=== PATIENT | male | born 1990 | race Caucasian/White ===

== ENCOUNTER 2017-12-24 08:56 | Inpatient (IN) | payer SELFPAY ==
[2017-12-24 11:16] VITALS: BMI 19.1
--- NOTE | 2017-12-24 14:14 | HP ---
Admission [facility] Chief Complaint: Here for alcohol and opiate withdrawal. Allergies/Adverse Reactions: Allergies Allergy/AdvReac Type Severity Reaction Status Date / Time No Known Allergies Allergy Verified 12/24/17 11:17 History of Present Illness: Alcohol Cocaine Marijuana Percocet-- weaned self off percocet 1 month ago Nicotine use at age 18. Denies hx seizures. Hx blackouts r/t alcohol use. Hx. sobriety x 30 days w/o a program Denies significant PMH/PSH - Negative CONTRACT PARALEGAL report. Exam Limitations: No Limitations - Ebola screening Have you traveled outside of the country in the last 21 days: No (N) Have you had contact with anyone from an Ebola affected area: No Have you been sick,other than usual withdrawal symptoms: No Do you have a fever: No - Review of Systems Constitutional: Chills, Diaphoresis, Changes in sleep (Difficulty falling asleep ) EENT: reports: No Symptoms Reported Respiratory: reports: Cough, Shortness of Breath (Occ SOB r/t smoking.) Cardiac: reports: No Symptoms Reported GI: reports: Nausea : reports: No Symptoms Reported Musculoskeletal: reports: No Symptoms Reported Integumentary: reports: No Symptoms Reported Neuro: reports: Headache (r/t withdrawal), Tremors Endocrine: reports: No Symptoms Reported Hematology: reports: No Symptoms Reported Psychiatric: reports: Judgement Intact, Agitated, Anxious (Denies thoughts of harming self or others.) Patient History - Patient Medical History Hx Asthma: No Hx Chronic Obstructive Pulmonary Disease (COPD): No Hx Cardiac Disorders: No Hx Hypertension: No Hx Seizures: No Hx Diabetes: No Hx Gastrointestinal Disorders: No Hx Liver Disease: No Hx Genitourinary Disorders: No Hx Sexually Transmitted Disorders: No Hx Renal Disease (ESRD): No Hx Thyroid Disease: No Hx Human Immunodeficiency Virus (HIV): No (Never tested) Hx Depression: No Hx Suicide Attempt: No Hx Schizophrenia: No - Patient Surgical History Past Surgical History: No - PPD History Previous Implant?: Yes Documented Results: Negative w/o proof Implanted On Prior R Admission?: No PPD to be Administered?: Yes - Smoking Cessation Smoking history: Current every day smoker Have you smoked in the past 12 months: Yes Aproximately how many cigarettes per day: 20 Hx Chewing Tobacco Use: No Initiated information on smoking cessation: Yes 'Breaking Loose' booklet given: 12/24/17 - Substance & Tx. History Hx Alcohol Use: Yes Hx Substance Use: Yes Substance Use Type: Alcohol, Cocaine, Heroin, Marijuana Hx Substance Use Treatment: Yes (outpaitent rehab 9 years ago) - Substances Abused Alcohol Route: Oral Frequency: Daily Amount used: 12PK BEER/1-2 SHOTS WHISKEYS Age of first use: 11 Date of Last Use: 12/24/17 Cocaine Route: Inhalation Frequency: Daily Amount used: $50-60 Age of first use: 21 Date of Last Use: 12/23/17 Marijuana/Hashish Route: Smoking Frequency: Daily Amount used: 5 GRAMS Age of first use: 11 Date of Last Use: 12/23/17 PERCOCET Route: Oral Frequency: Daily Amount used: 2 PILLS Age of first use: 25 Date of Last Use: 11/24/17 Admission Physical Exam [facility] - Vital Signs Vital Signs: Vital Signs - 24 hr 12/24/17 11:14 Temperature 95.9 F L Pulse Rate 90 Respiratory 18 Rate Blood Pressure 127/81 - Physical HEENTM: Yes: Normocephalic, Normal Voice, LITZY, Pharynx Normal Respiratory: Yes: Chest Non-Tender, Lungs Clear, Normal Breath Sounds, No Respiratory Distress Neck: Yes: No masses,lesions,Nodules, Supple Breast: Yes: Breast Exam Deferred Cardiology: Yes: Regular Rhythm, Regular Rate, S1, S2 Abdominal: Yes: Non Tender, Flat, Soft, Increased Bowel Sounds Genitourinary: Yes: Within Normal Limits Back: Yes: Normal Inspection Musculoskeletal: Yes: full range of Motion, Gait Steady, Pelvis Stable Extremities: Yes: Normal Capillary Refill, Normal Range of Motion, Non-Tender, Tremors (of hands upon extension) 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 Off w/ day by 3 days.) Integumentary: Yes: Within Normal Limits - Diagnostic (1) Alcohol dependence with uncomplicated withdrawal Current Visit: Yes Status: Acute (2) Cannabis dependence, uncomplicated Current Visit: Yes Status: Chronic (3) Cocaine dependence, uncomplicated Current Visit: Yes Status: Chronic (4) Opioid abuse, in remission Current Visit: No Status: Chronic Cleared for Admission [facility] - Detox or Rehab [facility] Level of Care: Medically Managed Detox Regimen/Protocol: Librium [facility] Breath Alcohol Content Breath Alcohol Content: 0.047 Urine Drug Screen - Results Drug Screen Negative: No Urine Drug Screen Results: THC-Marijuana, JAE-Cocaine
[2017-12-24] MEDS ORDERED: P-EPHED 60MG/TRIPROLIDI 2.5MG TABLET PO PRN (14:33)
[2017-12-24] MEDS ORDERED: LOPERAMIDE HCL 2 MG CAPSULE PO PRN (14:33)
[2017-12-24] MEDS ORDERED: MAG HYDROX/AL HYDROX/SIMETH 30 ML UNIT-DOSE CUP PO PRN (14:33)
[2017-12-24] MEDS ORDERED: guaiFENesin/D-METHORPHAN HB 10 ML UNIT-DOSE CUPS PO PRN (14:33)
[2017-12-24] MEDS ORDERED: chlordiazePOXIDE HCL 25 MG CAPSULE PO PRN (14:33)
[2017-12-24] MEDS ORDERED: NICOTINE POLACRILEX 2 MG GUM BUC PRN (14:33)
[2017-12-24] MEDS ORDERED: MAGNESIUM CITRATE 300 ML BOTTLE PO PRN (14:33)
[2017-12-24] MEDS ORDERED: MAGNESIUM HYDROX 2400MG/30ML ORAL SUSPENSION 30 ML CUP PO PRN (14:33)
[2017-12-24] MEDS ORDERED: hydrOXYzine PAMOATE 50 MG CAPSULE (FP) PO PRN (14:33)
[2017-12-24] MEDS ORDERED: ACETAMINOPHEN 325 MG TABLET (FP) PO PRN (14:33)
[2017-12-24] MEDS ORDERED: chlordiazePOXIDE HCL 25 MG CAPSULE PO ONE (15:30)
--- NOTE | 2017-12-24 16:16 | CONSULT ---
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 Denies suicidal, homicidal ideation Substance Abuse History: Smoking history: Current every day smoker. Have you smoked in the past 12 months: Yes. Aproximately how many cigarettes per day: 20. Hx Chewing Tobacco Use: No. Initiated information on smoking cessation: Yes. 'Breaking Loose' booklet given: 12/24/17. - Substance & Tx. History. Hx Alcohol Use: Yes. Hx Substance Use: Yes. Substance Use Type: Alcohol, Cocaine , Heroin, Marijuana. Hx Substance Use Treatment: Yes (outpaitent rehab 9 years ago). - Substances Abused. Alcohol. Route: Oral. Frequency: Daily. Amount used: 12PK BEER/1-2 SHOTS WHISKEYS. Age of first use: 11. Date of Last Use: 12/24/17. Cocaine. Route: Inhalation. Frequency: Daily. Amount used : $50-60. Age of first use: 21. Date of Last Use: 12/23/17. Marijuana/ Hashish. Route: Smoking. Frequency: Daily. Amount used: 5 GRAMS. Age of first use: 11. Date of Last Use: 12/23/17. PERCOCET. Route: Oral. Frequency: Daily. Amount used: 2 PILLS. Age of first use: 25. Date of Last Use: 11/24/17 Medical History: Denies significant medical issues Psychiatric History: Patient reports anxiety and depression, reports no psychiatrric hospitalization histopry, reports no p[sychiatric medications taking prior to admission Physical/Sexual Abuse/Trauma History: Denies Additional Comment: Observation. Detox Unit Care Protocol Mental Status Exam - Mental Status Exam Alert and Oriented to: Place, Person Cognitive Function: Fair Patient Appearance: Well Groomed Mood: Anxious Affect: Mood Congruent Patient Behavior: Cooperative Speech Pattern: Appropriate Voice Loudness: Normal Thought Process: Goal Oriented Thought Disorder: Being Controlled Hallucinations: Denies Suicidal Ideation: Denies Homicidal Ideation: Denies Insight/Judgement: Fair Sleep: Difficulty falling asleep Appetite: Fair Muscle strength/Tone: Normal Gait/Station: Normal Additional Comments: Observation. Detox Unit Care Protocol Psychiatric Findings - Problem List (Institute 1, 2,3) (1) Drug-induced mood disorder Current Visit: Yes Status: Acute (2) Alcohol dependence with uncomplicated withdrawal Current Visit: Yes Status: Acute (3) Cannabis dependence, uncomplicated Current Visit: Yes Status: Chronic (4) Cocaine dependence, uncomplicated Current Visit: Yes Status: Chronic (5) Opioid abuse, in remission Current Visit: No Status: Chronic - Initial Treatment Plan Initial Treatment Plan: Observation. Detox Unit Care Protocol
[2017-12-24] MEDS: chlordiazePOXIDE HCL 25 MG CAPSULE PO SCH ×3 (21:26→21:59)
[2017-12-24] MEDS: THIAMINE HCL 100 MG TABLET (FP) PO SCH (21:57)
[2017-12-25 00:53] LABS: URINE APPEARANCE CLEAR; URINE BILIRUBIN NEGATIVE (<2.0 mg/dL); URINE COLOR LTYELLOW; URINE GLUCOSE (UA) NEGATIVE (NEGATIVE); URINE KETONE NEGATIVE (NEGATIVE); URINE LEUK ESTERASE NEGATIVE (NEGATIVE); URINE NITRITE NEGATIVE (NEGATIVE); URINE PROTEIN NEGATIVE (NEGATIVE); URINE UROBILINOGEN NEGATIVE mg/dL (0.2-1.0)
[2017-12-25] MEDS: chlordiazePOXIDE HCL 25 MG CAPSULE PO SCH ×4 (06:05→22:08)
[2017-12-25 09:55] LABS: HEMATOCRIT 47.2 % (35.4-49); HEMOGLOBIN 15.6 GM/dL (11.7-16.9); MCH 31.4 pg (25.7-33.7); MEAN CELL VOLUME 95.3 fl (80-96); MEAN PLT VOLUME 8.4 fl (7.5-11.1); PLATELET COUNT 264 K/MM3 (134-434); RBC 4.95 M/mm3 (4.00-5.60); RDW 13.7 % (11.9-15.9); WHITE BLOOD COUNT 13.6 K/mm3 (4.0-10.0)
--- NOTE | 2017-12-25 10:01 | EKG ---
Test Reason : Blood Pressure : / mmHG Vent. Rate : 068 BPM Atrial Rate : 068 BPM P-R Int : 164 ms QRS Dur : 086 ms QT Int : 372 ms P-R-T Axes : 073 085 073 degrees QTc Int : 395 ms NORMAL SINUS RHYTHM WITH SINUS ARRHYTHMIA NO PREVIOUS ECGS AVAILABLE Confirmed by PINO BLANCO MD ([id number]) on 12/25/2017 10:00:54 AM Referred By: Confirmed By:PINO BLANCO MD
[2017-12-25 10:21] LABS: ALBUMIN 4.5 g/dl (3.4-5.0); ANION GAP 8 MMOL/L (8-16); BLOOD UREA NITROGEN 12 mg/dL (7-18); CALCIUM 9.2 mg/dL (8.5-10.1); CHLORIDE 102 mmol/L (98-107); CO2 33 mmol/L (21-32); GLUCOSE,RANDOM 77 mg/dL (74-106); POTASSIUM 4.5 mmol/L (3.5-5.1); SGOT/AST 27 U/L (15-37); SGPT/ALT 43 U/L (12-78); SODIUM 143 mmol/L (136-145)
[2017-12-25 10:23] LABS: ALK PHOS 67 U/L (45-117); BILIRUBIN,TOTAL 0.3 mg/dL (0.2-1.0); TOT PROT 8.2 g/dl (6.4-8.2)
[2017-12-25] MEDS: NICOTINE 21 MG/24 HOURS TOPICAL PATCH TD SCH (10:46)
[2017-12-25] MEDS: PRENATAL VITAMINS W/ FOLIC ACID TABLET (FP) PO SCH (10:46)
--- NOTE | 2017-12-25 17:46 | PN ---
[facility] CIWA - CIWA Score Nausea/Vomitin-Mild Nausea/No Vomiting (Tolerating diet) Muscle Tremors: 4-Moderate,w/Arms Extend Anxiety: 1-Mildly Anxious Agitation: 1-Slight > Activity Paroxysmal Sweats: No Perspiration Orientation: 0-Oriented Tacttile Disturbances: 0-None Auditory Disturbances: 0-None Visual Disturbances: 0-None Headache: 0-None Present CIWA-Ar Total Score: 7 S Progress Note (SOAP) Subjective: States having some nausea, feeling tremors and a little anxious. Tolerating diet. Objective: A & O x 3. Tremors of hands noted. Abd s/nt. 12/25/17 17:46 Vital Signs 12/25/17 12/25/17 13:21 17:22 Temperature 99.1 F 98.4 F Pulse Rate 72 69 Respiratory 18 18 Rate Blood Pressure 130/74 116/58 Laboratory Last Values WBC 13.6 K/mm3 (4.0-10.0) H 12/25/17 06:00 RBC 4.95 M/mm3 (4.00-5.60) 12/25/17 06:00 Hgb 15.6 GM/dL (11.7-16.9) 12/25/17 06:00 Hct 47.2 % (35.4-49) 12/25/17 06:00 MCV 95.3 fl (80-96) 12/25/17 06:00 MCH 31.4 pg (25.7-33.7) 12/25/17 06:00 MCHC 33.0 g/dl (32.0-35.9) 12/25/17 06:00 RDW 13.7 % (11.9-15.9) 12/25/17 06:00 Plt Count 264 K/MM3 (134-434) 12/25/17 06:00 MPV 8.4 fl (7.5-11.1) 12/25/17 06:00 Sodium 143 mmol/L (136-145) 12/25/17 06:00 Potassium 4.5 mmol/L (3.5-5.1) 12/25/17 06:00 Chloride 102 mmol/L (98-107) 12/25/17 06:00 Carbon Dioxide 33 mmol/L (21-32) H 12/25/17 06:00 Anion Gap 8 MMOL/L (8-16) 12/25/17 06:00 BUN 12 mg/dL (7-18) 12/25/17 06:00 Creatinine 1.0 mg/dL (0.7-1.3) 12/25/17 06:00 Creat Clearance w eGFR > 60 (>60) 12/25/17 06:00 Random Glucose 77 mg/dL (74-106) 12/25/17 06:00 Calcium 9.2 mg/dL (8.5-10.1) 12/25/17 06:00 Total Bilirubin 0.3 mg/dL (0.2-1.0) 12/25/17 06:00 AST 27 U/L (15-37) 12/25/17 06:00 ALT 43 U/L (12-78) 12/25/17 06:00 Alkaline Phosphatase 67 U/L (45-117) 12/25/17 06:00 Total Protein 8.2 g/dl (6.4-8.2) 12/25/17 06:00 Albumin 4.5 g/dl (3.4-5.0) 12/25/17 06:00 Urine Color Ltyellow 12/24/17 23:38 Urine Appearance Clear 12/24/17 23:38 Urine pH 5.0 (5.0-8.0) 12/24/17 23:38 Ur Specific [place] 1.009 (1.001-1.035) 12/24/17 23:38 Urine Protein Negative (NEGATIVE) 12/24/17 23:38 Urine Glucose (UA) Negative (NEGATIVE) 12/24/17 23:38 Urine Ketones Negative (NEGATIVE) 12/24/17 23:38 Urine Blood Negative (NEGATIVE) 12/24/17 23:38 Urine Nitrite Negative (NEGATIVE) 12/24/17 23:38 Urine Bilirubin Negative (<2.0 mg/dL) 12/24/17 23:38 Urine Urobilinogen Negative mg/dL (0.2-1.0) 12/24/17 23:38 Ur Leukocyte Esterase Negative (NEGATIVE) 12/24/17 23:38 RPR Titer Nonreactive (NONREACTIVE) 12/25/17 06:00 HIV 1&2 Antibody Screen Negative 12/24/17 06:00 HIV P24 Antigen Negative 12/24/17 06:00 Labs reviewed. Assessment: Withdrawal symptoms. Plan: Continue detox.
[2017-12-25] MEDS: THIAMINE HCL 100 MG TABLET (FP) PO SCH (22:08)
[2017-12-25] MEDS: MELATONIN 5 MG TABLETS PO PRN (22:08)
[2017-12-26] MEDS: IBUPROFEN 400 MG TABLET (FP) PO PRN (05:05)
[2017-12-26] MEDS: MENTHOL/PHENOL 1 EACH UD MM PRN (05:06)
[2017-12-26] MEDS: chlordiazePOXIDE HCL 25 MG CAPSULE PO SCH ×2 (05:06→10:12)
[2017-12-26] MEDS: PRENATAL VITAMINS W/ FOLIC ACID TABLET (FP) PO SCH (10:11)
[2017-12-26] MEDS: NICOTINE 21 MG/24 HOURS TOPICAL PATCH TD SCH (10:11)
--- NOTE | 2017-12-26 12:33 | PN ---
[facility] CIWA - CIWA Score Nausea/Vomitin Muscle Tremors: 3 Anxiety: 4-Mod. Anxious/Guarded Agitation: 4-Moderately Restless Paroxysmal Sweats: 3 Orientation: 0-Oriented Tacttile Disturbances: 0-None Auditory Disturbances: 0-None Visual Disturbances: 0-None Headache: 0-None Present CIWA-Ar Total Score: 16 S Progress Note (SOAP) Subjective: Sleep disturbance sweats requesting Valium Objective: 12/26/17 12:30 Sleeping and arousable to verbal stimuli A & O x 3 Anxious Vital Signs Temperature 97.2 F L 12/26/17 09:37 Pulse Rate 69 12/26/17 09:37 Respiratory Rate 18 12/26/17 09:37 Blood Pressure 104/59 12/26/17 09:37 O2 Sat by Pulse Oximetry (%) Laboratory Last Values WBC 13.6 K/mm3 (4.0-10.0) H 12/25/17 06:00 RBC 4.95 M/mm3 (4.00-5.60) 12/25/17 06:00 Hgb 15.6 GM/dL (11.7-16.9) 12/25/17 06:00 Hct 47.2 % (35.4-49) 12/25/17 06:00 MCV 95.3 fl (80-96) 12/25/17 06:00 MCH 31.4 pg (25.7-33.7) 12/25/17 06:00 MCHC 33.0 g/dl (32.0-35.9) 12/25/17 06:00 RDW 13.7 % (11.9-15.9) 12/25/17 06:00 Plt Count 264 K/MM3 (134-434) 12/25/17 06:00 MPV 8.4 fl (7.5-11.1) 12/25/17 06:00 Sodium 143 mmol/L (136-145) 12/25/17 06:00 Potassium 4.5 mmol/L (3.5-5.1) 12/25/17 06:00 Chloride 102 mmol/L (98-107) 12/25/17 06:00 Carbon Dioxide 33 mmol/L (21-32) H 12/25/17 06:00 Anion Gap 8 MMOL/L (8-16) 12/25/17 06:00 BUN 12 mg/dL (7-18) 12/25/17 06:00 Creatinine 1.0 mg/dL (0.7-1.3) 12/25/17 06:00 Creat Clearance w eGFR > 60 (>60) 12/25/17 06:00 Random Glucose 77 mg/dL (74-106) 12/25/17 06:00 Calcium 9.2 mg/dL (8.5-10.1) 12/25/17 06:00 Total Bilirubin 0.3 mg/dL (0.2-1.0) 12/25/17 06:00 AST 27 U/L (15-37) 12/25/17 06:00 ALT 43 U/L (12-78) 12/25/17 06:00 Alkaline Phosphatase 67 U/L (45-117) 12/25/17 06:00 Total Protein 8.2 g/dl (6.4-8.2) 12/25/17 06:00 Albumin 4.5 g/dl (3.4-5.0) 12/25/17 06:00 Urine Color Ltyellow 12/24/17 23:38 Urine Appearance Clear 12/24/17 23:38 Urine pH 5.0 (5.0-8.0) 12/24/17 23:38 Ur Specific [place] 1.009 (1.001-1.035) 12/24/17 23:38 Urine Protein Negative (NEGATIVE) 12/24/17 23:38 Urine Glucose (UA) Negative (NEGATIVE) 12/24/17 23:38 Urine Ketones Negative (NEGATIVE) 12/24/17 23:38 Urine Blood Negative (NEGATIVE) 12/24/17 23:38 Urine Nitrite Negative (NEGATIVE) 12/24/17 23:38 Urine Bilirubin Negative (<2.0 mg/dL) 12/24/17 23:38 Urine Urobilinogen Negative mg/dL (0.2-1.0) 12/24/17 23:38 Ur Leukocyte Esterase Negative (NEGATIVE) 12/24/17 23:38 RPR Titer Nonreactive (NONREACTIVE) 12/25/17 06:00 HIV 1&2 Antibody Screen Negative 12/24/17 06:00 HIV P24 Antigen Negative 12/24/17 06:00 labs noted, WBC elevated; afebrile, no complaints Assessment: 12/26/17 12:32 withdrawal sx Plan: continue detox Switch to valium regimen Increase hydration
[2017-12-26] MEDS: diazePAM 5 MG TABLET PO SCH ×2 (13:49→22:21)
[2017-12-26] MEDS ORDERED: chlordiazePOXIDE 5 MG CAPSULE PO SCH (17:00)
[2017-12-26] MEDS: diazePAM 5 MG TABLET PO PRN (18:04)
[2017-12-26] MEDS: THIAMINE HCL 100 MG TABLET (FP) PO SCH (22:21)
[2017-12-26] MEDS: MELATONIN 5 MG TABLETS PO PRN (23:38)
[2017-12-27] MEDS: MENTHOL/PHENOL 1 EACH UD MM PRN ×2 (03:52→10:16)
[2017-12-27] MEDS: diazePAM 5 MG TABLET PO SCH ×2 (10:14→22:20)
[2017-12-27] MEDS: PRENATAL VITAMINS W/ FOLIC ACID TABLET (FP) PO SCH (10:14)
[2017-12-27] MEDS: NICOTINE 21 MG/24 HOURS TOPICAL PATCH TD SCH (10:14)
--- NOTE | 2017-12-27 13:07 | PN ---
[facility] Progress Note (SOAP) Subjective: feeling better no tremor less sweat sleep better at night social with peers in day room Objective: 12/27/17 13:08 Vital Signs Temperature 97.9 F 12/27/17 09:19 Pulse Rate 78 12/27/17 09:19 Respiratory Rate 18 12/27/17 09:19 Blood Pressure 136/78 12/27/17 09:19 O2 Sat by Pulse Oximetry (%) Laboratory Last Values WBC 13.6 K/mm3 (4.0-10.0) H 12/25/17 06:00 RBC 4.95 M/mm3 (4.00-5.60) 12/25/17 06:00 Hgb 15.6 GM/dL (11.7-16.9) 12/25/17 06:00 Hct 47.2 % (35.4-49) 12/25/17 06:00 MCV 95.3 fl (80-96) 12/25/17 06:00 MCH 31.4 pg (25.7-33.7) 12/25/17 06:00 MCHC 33.0 g/dl (32.0-35.9) 12/25/17 06:00 RDW 13.7 % (11.9-15.9) 12/25/17 06:00 Plt Count 264 K/MM3 (134-434) 12/25/17 06:00 MPV 8.4 fl (7.5-11.1) 12/25/17 06:00 Sodium 143 mmol/L (136-145) 12/25/17 06:00 Potassium 4.5 mmol/L (3.5-5.1) 12/25/17 06:00 Chloride 102 mmol/L (98-107) 12/25/17 06:00 Carbon Dioxide 33 mmol/L (21-32) H 12/25/17 06:00 Anion Gap 8 MMOL/L (8-16) 12/25/17 06:00 BUN 12 mg/dL (7-18) 12/25/17 06:00 Creatinine 1.0 mg/dL (0.7-1.3) 12/25/17 06:00 Creat Clearance w eGFR > 60 (>60) 12/25/17 06:00 Random Glucose 77 mg/dL (74-106) 12/25/17 06:00 Calcium 9.2 mg/dL (8.5-10.1) 12/25/17 06:00 Total Bilirubin 0.3 mg/dL (0.2-1.0) 12/25/17 06:00 AST 27 U/L (15-37) 12/25/17 06:00 ALT 43 U/L (12-78) 12/25/17 06:00 Alkaline Phosphatase 67 U/L (45-117) 12/25/17 06:00 Total Protein 8.2 g/dl (6.4-8.2) 12/25/17 06:00 Albumin 4.5 g/dl (3.4-5.0) 12/25/17 06:00 Urine Color Ltyellow 12/24/17 23:38 Urine Appearance Clear 12/24/17 23:38 Urine pH 5.0 (5.0-8.0) 12/24/17 23:38 Ur Specific [place] 1.009 (1.001-1.035) 12/24/17 23:38 Urine Protein Negative (NEGATIVE) 12/24/17 23:38 Urine Glucose (UA) Negative (NEGATIVE) 12/24/17 23:38 Urine Ketones Negative (NEGATIVE) 12/24/17 23:38 Urine Blood Negative (NEGATIVE) 12/24/17 23:38 Urine Nitrite Negative (NEGATIVE) 12/24/17 23:38 Urine Bilirubin Negative (<2.0 mg/dL) 12/24/17 23:38 Urine Urobilinogen Negative mg/dL (0.2-1.0) 12/24/17 23:38 Ur Leukocyte Esterase Negative (NEGATIVE) 12/24/17 23:38 RPR Titer Nonreactive (NONREACTIVE) 12/25/17 06:00 HIV 1&2 Antibody Screen Negative 12/24/17 06:00 HIV P24 Antigen Negative 12/24/17 06:00 lab noted Assessment: 12/27/17 13:08 mild with drawal sx Plan: continue detox
[2017-12-27] MEDS ORDERED: chlordiazePOXIDE HCL 10 MG CAPSULE PO SCH (17:00)
[2017-12-27] MEDS: diazePAM 5 MG TABLET PO PRN (17:38)
[2017-12-27] MEDS: THIAMINE HCL 100 MG TABLET (FP) PO SCH (22:20)
[2017-12-27] MEDS: MELATONIN 5 MG TABLETS PO PRN (22:59)
[2017-12-28] MEDS: diazePAM 5 MG TABLET PO PRN (00:39)
[2017-12-28] MEDS: MENTHOL/PHENOL 1 EACH UD MM PRN (06:07)
--- NOTE | 2017-12-28 08:44 | DS ---
[facility] Detox Discharge Summary Admission Date: 12/24/17 Discharge Date: 12/28/17 - History Present History: Alcohol Dependence Additional Comments: 27 years old male admitted on 12/24/17 for alcohol withdrawal sx completed alcohol detox regimen tolerated well denies alcohol withdrawal sx alert oriented x 3 no acute distress aftercare [facility] - Physical Exam Results Vital Signs: Vital Signs Temperature 95.4 F L 12/28/17 07:03 Pulse Rate 70 12/28/17 07:03 Respiratory Rate 18 12/28/17 07:03 Blood Pressure 131/72 12/28/17 07:03 O2 Sat by Pulse Oximetry (%) Pertinent Admission Physical Exam Findings: alcohol withdrawal sx Vital Signs Temperature 96.6 F L 12/28/17 09:30 Pulse Rate 79 12/28/17 09:30 Respiratory Rate 18 12/28/17 09:30 Blood Pressure 126/85 12/28/17 09:30 O2 Sat by Pulse Oximetry (%) Laboratory Last Values WBC 13.6 K/mm3 (4.0-10.0) H 12/25/17 06:00 RBC 4.95 M/mm3 (4.00-5.60) 12/25/17 06:00 Hgb 15.6 GM/dL (11.7-16.9) 12/25/17 06:00 Hct 47.2 % (35.4-49) 12/25/17 06:00 MCV 95.3 fl (80-96) 12/25/17 06:00 MCH 31.4 pg (25.7-33.7) 12/25/17 06:00 MCHC 33.0 g/dl (32.0-35.9) 12/25/17 06:00 RDW 13.7 % (11.9-15.9) 12/25/17 06:00 Plt Count 264 K/MM3 (134-434) 12/25/17 06:00 MPV 8.4 fl (7.5-11.1) 12/25/17 06:00 Sodium 143 mmol/L (136-145) 12/25/17 06:00 Potassium 4.5 mmol/L (3.5-5.1) 12/25/17 06:00 Chloride 102 mmol/L (98-107) 12/25/17 06:00 Carbon Dioxide 33 mmol/L (21-32) H 12/25/17 06:00 Anion Gap 8 MMOL/L (8-16) 12/25/17 06:00 BUN 12 mg/dL (7-18) 12/25/17 06:00 Creatinine 1.0 mg/dL (0.7-1.3) 12/25/17 06:00 Creat Clearance w eGFR > 60 (>60) 12/25/17 06:00 Random Glucose 77 mg/dL (74-106) 12/25/17 06:00 Calcium 9.2 mg/dL (8.5-10.1) 12/25/17 06:00 Total Bilirubin 0.3 mg/dL (0.2-1.0) 12/25/17 06:00 AST 27 U/L (15-37) 12/25/17 06:00 ALT 43 U/L (12-78) 12/25/17 06:00 Alkaline Phosphatase 67 U/L (45-117) 12/25/17 06:00 Total Protein 8.2 g/dl (6.4-8.2) 12/25/17 06:00 Albumin 4.5 g/dl (3.4-5.0) 12/25/17 06:00 Urine Color Ltyellow 12/24/17 23:38 Urine Appearance Clear 12/24/17 23:38 Urine pH 5.0 (5.0-8.0) 12/24/17 23:38 Ur Specific [place] 1.009 (1.001-1.035) 12/24/17 23:38 Urine Protein Negative (NEGATIVE) 12/24/17 23:38 Urine Glucose (UA) Negative (NEGATIVE) 12/24/17 23:38 Urine Ketones Negative (NEGATIVE) 12/24/17 23:38 Urine Blood Negative (NEGATIVE) 12/24/17 23:38 Urine Nitrite Negative (NEGATIVE) 12/24/17 23:38 Urine Bilirubin Negative (<2.0 mg/dL) 12/24/17 23:38 Urine Urobilinogen Negative mg/dL (0.2-1.0) 12/24/17 23:38 Ur Leukocyte Esterase Negative (NEGATIVE) 12/24/17 23:38 RPR Titer Nonreactive (NONREACTIVE) 12/25/17 06:00 HIV 1&2 Antibody Screen Negative 12/24/17 06:00 HIV P24 Antigen Negative 12/24/17 06:00 lab noted - Treatment Hospital Course: Detox Protocol Followed, Detoxed Safely, Responded well, Discharged Condition Good, Rehab Referral Accepted Patient has Accepted a Rehab Referral to: [facility] - Medication Discharge Medications: Ambulatory Orders NK [No Known Home Medication] 05/05/15 - Diagnosis (1) Alcohol dependence with uncomplicated withdrawal Status: Acute (2) Cannabis dependence, uncomplicated Status: Chronic (3) Cocaine dependence, uncomplicated Status: Chronic (4) Drug-induced mood disorder Status: Suspected - AMA Did Patient Leave Against Medical Advice: No
[2017-12-28] MEDS: IBUPROFEN 400 MG TABLET (FP) PO PRN (09:10)
[2017-12-28] MEDS: PRENATAL VITAMINS W/ FOLIC ACID TABLET (FP) PO SCH (09:10)
[2017-12-28] MEDS: NICOTINE 21 MG/24 HOURS TOPICAL PATCH TD SCH (09:10)
[2017-12-28 09:31] VITALS: BP 126/85; PULSE 79; TEMP 96.6
[2017-12-28] MEDS ORDERED: diazePAM 5 MG TABLET PO SCH (10:00)
== END 2017-12-28 09:45 | disposition home or self-care (01) | DRG 773 ==
LOC: YASAS 08:56 → Y6N 15:24
PROC: HZ2ZZZZ Detoxification Services for Substance Abuse Treatment (ICD-10-PCS; principal; 2017-12-24)
DX: F10.230 Alcohol dependence with withdrawal, uncomplicated (principal); F14.20 Cocaine dependence, uncomplicated; F12.20 Cannabis dependence, uncomplicated; F11.11 Opioid abuse, in remission; F19.24 Other psychoactive substance dependence with psychoactive substance-induced mood disorder
CPT/HCPCS: 36415; 80053; 81003; 85027; 86593; 87389; 93005; 93010

== ENCOUNTER 2019-01-16 20:59 | Emergency (ER) | payer SELFPAY ==
[2019-01-16 21:17] VITALS: BP 139/98; PULSE 79; TEMP 98.1; BMI 21.4
--- NOTE | 2019-01-16 21:18 | PDOC ---
Documentation entered by Madelaine Almanza SCRIBE, acting as scribe for Mi Vásquez MD. Mi Vásquez MD: This documentation has been prepared by the scribe, Madelaine Almanza SCRIBE, under my direction and personally reviewed by me in its entirety. I confirm that the documentation accurately reflects all work, treatment, procedures, and medical decision making performed by me. History of Present Illness - General Chief Complaint: Psychiatric Stated Complaint: DIFFICULTY BREATHING X 6 MONTHS Time Seen by Provider: 01/16/19 21:00 History Source: Patient Exam Limitations: No Limitations - History of Present Illness Initial Comments: 01/16/19 21:31 History of Present Illness Mr. Lopez is a 28-year-old male who presents to the emergency department with intermittent periods shortness of breath for the past 6 months. The patient presents with 6 months of shortness of breath that presents while laying down, associated with intermittent episodes of chest "tightness" and difficulty catching his breath that wakes him up from sleep. usually feels restless at night. The patient reports taking Ibuprofen for the symptoms without relief. Denies chest pain currently. +smoking cannibis and cigarettes, last used yesterday. cannibis use twice a day. Denies fever, chills, cough, congestion, chest pain/burning currently, palpitations, dizziness, weakness, N, V, D, abdominal pain, bladder and bowel problems, leg/calf pain or swelling, rash. No sick contacts or travel. No new changes in medications. Denies trauma or strenuous activities. Allergies: None Past Medical History/PSH: hx of Alcohol, tobacco and marijuana (last use yesterday twice) abuse. Social history: Lives with family. 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 No weakness HEENT: no headache or dizziness. No congestion. No visual/hearing disturbances. CVS: +chest tightness. no syncope. Resp: +shortness of breath. No cough. Gastrointestinal: no abdominal pain, nausea or vomiting. Genitourinary: no urinary sx, hematuria. MUSCULOSKELETAL: No joint pain and swelling. No neck or back pain. SKIN: no redness or skin changes, no discharge, no rash. No wounds. Hematologic: no easy bruising/bleeding. NEUROLOGIC: No headache, dizziness, LOC or altered mental status. No weakness, numbness or tingling. Psych: no anxiety or depression Allergic/Immunologic: no allergies All other systems reviewed and negative, or as documented in HPI. Physical exam: General: Well appearing, awake and alert, NAD. HEENT: NCAT, PERRL, EOMI, clear conjunctiva, anicteric, moist mucus membranes, clear oropharynx, no oral lesions.. Neck: neck supple, FROM Resp: CTAB, normal and even respirations, no respiratory distress CVS: RRR, no murmurs, 2+ peripheral pulses throughout, no peripheral edema Chest: no chest wall tenderness Abdomen: soft, NTND, no rebound or guarding. No CVAT. Back: nontender, normal inspection and ROM MSK: no edema, AVINA x4, ROM intact. No clubbing or cyanosis. normal bulk and tone. Extremities: no calf tenderness, no edema. Neuro: alert, oriented appropriately; no focal neurologic deficits Psych: Calm and cooperative Skin: warm and well perfused, cap refill <2 sec, normal color 01/16/19 21:35 Past History - Past Medical History Allergies/Adverse Reactions: Allergies Allergy/AdvReac Type Severity Reaction Status Date / Time No Known Allergies Allergy Verified 01/16/19 21:01 Home Medications: Ambulatory Orders NK [No Known Home Medication] 05/05/15 Asthma: No Cardiac Disorders: No COPD: No Diabetes: No GI Disorders: No Disorders: No HTN: No Kidney Stones: No Liver Disease: No Seizures: No Thyroid Disease: No - Reproductive History Testicular Surgery: No - Immunization History Td Vaccination: No Immunization Up to Date: No - Psycho Social/Smoking Cessation Hx Smoking Status: Yes Smoking History: Current every day smoker Have you smoked in the past 12 months: Yes Number of Cigarettes Smoked Daily: 20 'Breaking Loose' booklet given: 12/24/17 Hx Alcohol Use: Yes Drug/Substance Use Hx: Yes Substance Use Type: Alcohol, Cocaine, Heroin, Marijuana Hx Substance Use Treatment: Yes (outpaitent rehab 9 years ago) *Physical Exam - Vital Signs Last Vital Signs Temp Pulse Resp BP Pulse Ox 98.1 F 79 16 139/98 100 01/16/19 21:02 01/16/19 21:02 01/16/19 21:02 01/16/19 21:02 01/16/19 21:02 Heart Score/ECG Review #1 ECG reviewed & interpreted by me at: 21:25 General ECG Interpretation: Sinus Rhythm, Normal Rate, Normal Intervals 01/16/19 21:33 NSR at [address]-T wave segment derangements. ED Treatment Course - RADIOLOGY Radiology Studies Ordered: Category Date Time Status CHEST PA & LAT [RAD] Stat Radiology 01/16/19 21:14 Ordered Chest X-Ray Result: No Infiltrates Radiograph Interpretation: 01/16/19 21:33 Interpreted by ED Physician: CXR (2 view): no acute abnormality: no infiltrates , bones appear intact and structures normal alignment, cardiac silhouette within normal limits. no free air under diaphragm, no pneumothorax. Medical Decision Making - Medical Decision Making 01/16/19 21:17 See HPI for details. Prior notes reviewed, including admissions, discharges and consultations. Vital signs reviewed, wnl. Vital Signs Temp Pulse Resp BP Pulse Ox 98.1 F 79 16 139/98 100 01/16/19 21:02 01/16/19 21:02 01/16/19 21:02 01/16/19 21:02 01/16/19 21:02 EKG normal sinus rhythm at 66 bpm, no interval abnormalities, narrow QRS, ST and T wave segments and morphology normal. CXR unremarkable, no mass, infection, normal cardiac silhouette, no ptx. ED course -PERC neg, doubt DVT/PE, no risk factors to suggest such also 6 months of sx. no acute symptoms. no active sob or cp. snoring/restless sleep possible. sleep monitoring at home advised. also smoking cessation advised. Pt to be discharged in stable condition. Patient made aware of clinical impression, treatment recommendations and disposition plan, return precautions discussed (including but not limited to new or persistent/worsening symptoms, pain, fevers, or signs of infection, chest pain, respiratory distress, inability to tolerate oral intake, dehydration, syncope, or neurologic changes) . Follow up with PMD - referrals given, as recommended, follow up information provided, take medications as instructed for duration of time. continue with supportive care, avoid triggers and precipitants. All questions answered to patient's satisfaction and expressed understanding and comfort with this. At the time of discharge, the patient is alert, clinically improved, tolerating po and verbalizes understanding of instructions, satisfied with the care received and felt comfortable with the plan. Patient does not suffer from an acute life- threatening medical condition at this time and is safe for outpatient follow- up. 01/16/19 21:34 01/16/19 21:35 01/16/19 21:38 Discharge - Discharge Information Problems reviewed: Yes Clinical Impression/Diagnosis: Shortness of breath Condition: Stable Disposition: HOME - Admission No - Follow up/Referral Referrals: [facility] [place] Internal Med [facility] [Provider Group] [facility] [Provider Group] - Patient Discharge Instructions Patient Printed Discharge Instructions: DI for Shortness of Breath Additional Instructions: 1) Please follow-up with your primary care doctor in the next 1-2 days. Please call tomorrow for for any urgent issues. referrals have been given for evaluation of your shortness of breath x 6 months 2) If you have any worsening of symptoms or any other concerns please return to the ED immediately. Return if worsening symptoms including fevers, headache, vomiting, visual or hearing disturbances, abdominal pain, chest pain, shortness of breath, syncope, dehydration, inability to take things by mouth/vomiting, altered mental status, or worsening concerning symptoms. Stay well hydrated and rest adequately. Make an appointment. If you cannot follow-up with your primary care doctor please return to the ED be advised, to quit smoking cigarettes and marijuana monitor your sleep and snoring habits, as this could precipitate your episodes. - Post Discharge Activity
--- NOTE | 2019-01-17 13:22 | EKG ---
Test Reason : Blood Pressure : / mmHG Vent. Rate : 066 BPM Atrial Rate : 066 BPM P-R Int : 176 ms QRS Dur : 086 ms QT Int : 402 ms P-R-T Axes : 076 083 067 degrees QTc Int : 421 ms NORMAL SINUS RHYTHM NORMAL ECG WHEN COMPARED WITH ECG OF 24-DEC-2017 17:14, NO SIGNIFICANT CHANGE WAS FOUND Confirmed by FELIBERTO CADET MD ([id number]) on 01/17/2019 1:22:00 PM Referred By: HARPAL BURGOS Confirmed By:FELIBERTO CADET MD
== END 2019-01-16 21:43 | disposition home or self-care (01) ==
LOC: FER 20:59
DX: R06.02 Shortness of breath (principal); F17.210 Nicotine dependence, cigarettes, uncomplicated
CPT/HCPCS: 71046-TC-FY; 93005; 99281-25

== ENCOUNTER 2019-02-07 17:46 | Inpatient (IN) | payer SELFPAY ==
[2019-02-07 19:11] VITALS: BMI 20.6
--- NOTE | 2019-02-07 21:34 | HP ---
"COWS - Scale Resting Pulse: 1= WI 81-100 Sweatin=Flushed/Facial Moisture Restless Observation: 1= Difficult to Sit Still Pupil Size: 1= Pupils >than Normal (Pupils = 3 mm) Bone or Joint Aches: 0= None Runny Nose/ Eye Tearin= Nasal Congestion GI Upset > 30mins: 2= Nausea/Diarrhea Tremor Observation: 2= Slight Tremor Visible Yawning Observation: 0= None Anxiety or Irritability: 2=Irritable/Anxious Goose Flesh Skin: 0=Smooth Skin COWS Score: 12 CIWA Score Nausea/Vomitin-Mild Nausea/No Vomiting Muscle Tremors: 5 Anxiety: 3 Agitation: 1-Slight > Activity Paroxysmal Sweats: 3 (Increased facial moisture) Orientation: 0-Oriented Tacttile Disturbances: 0-None Auditory Disturbances: 0-None Visual Disturbances: 0-None Headache: 1-Very Mild CIWA-Ar Total Score: 14 - Admission Criteria [facility] Guidelines: Admission for Medically Managed Detox: Requires at least one of the followin. CIWA greater than 12 2. Seizures within the past 24 hours 3. Delirium tremens within the past 24 hours 4. Hallucinations within the past 24 hours 5. Acute intervention needed for co occurring medical disorder 6. Acute intervention needed for co occurring psychiatric disorder 7. Severe withdrawal that cannot be handled at a lower level of care (continued vomiting, continued diarrhea, abnormal vital signs) requiring intravenous medication and/or fluids 8. Patient presents the following: CIWA greater than 12 Admission Criteria Met: Admission criteria met Admitting History and Physical - Smoking History Smoking history: Current every day smoker Have you smoked in the past 12 months: Yes Aproximately how many cigarettes per day: 20 - Alcohol/Substance Use Hx Alcohol Use: Yes Admission ROS S - HPI Chief Complaint: Here for alcohol and opioid withdrawal symptoms. Allergies/Adverse Reactions: Allergies Allergy/AdvReac Type Severity Reaction Status Date / Time No Known Allergies Allergy Verified 01/16/19 21:01 History of Present Illness: 28 yo presents w/ withdrawal symptoms associated w/ alcohol and opioid use. Seeking detox. Last [facility] admission 2017 and states was able to stay sober for about 9-10 months. AIMEE: 0.195 Utox: + THC/MOP Alcohol use since age 15. Drinks 8-12 16 oz beers per day. Heroin/Percocet: Restarted about 1 month ago. Pecocets 40 mg PO qod; Heroin 1-2 bags every 2 weeks. Marijuana use a lot in past. Now down to 3-4 x/day. Cocaine use daily until about 1 week ago. Nicotine use at age 18. Smokes 1/2 PPD. Hx seizures @ age 23 - r/t dehydration. Hx blackouts r/t alcohol use - last about 2 days ago. PMHx: Chest pain, seen in [facility] ED (12/2018) and cardiac issues r/o. SOB associated w/ anxiety MHHx: Anxiety. Panic attacks since . Denies thoughts of harming self or others. SHx: Domiciled. Intermittent employment. No legal situations. Search Terms: Shmuel Lopez, 1990 Search Date: 02/07/2019 09:44:24 PM The Drug Utilization Report below displays all of the controlled substance prescriptions, if any, that your patient has filled in the last twelve months. The information displayed on this report is compiled from pharmacy submissions to the Department, and accurately reflects the information as submitted by the pharmacies. This report was requested by: Hilary Moulton | Reference #: [id number] There are no results for the search terms that you entered. Search Terms: Shmuel Lopez, 1990 Search Date: 02/07/2019 09:44:48 PM States Searched: [place], [place], [place], [place], [place], [place], [place] The Drug Utilization Report below displays the controlled substance prescriptions, if any, that were dispensed in the indicated state(s). The information displayed on this report is compiled from requests submitted to other states' PMPs, and accurately reflects the information as returned by them. Blank brandon indicate data not provided by other state. This report was requested by: Hilary Moulton | Reference #: [id number] There are no results for the search terms that you entered. Exam Limitations: No Limitations - Ebola screening Have you traveled outside of the country in the last 21 days: No (N) Have you had contact with anyone from an Ebola affected area: No Have you been sick,other than usual withdrawal symptoms: No (Seen in [facility] ED for Chest Pain) Do you have a fever: No - Review of Systems Constitutional: Chills, Changes in sleep (Difficulty falling and staying asleep) , Weight Stable EENT: reports: Nose Congestion Respiratory: reports: Other (SOB associated w/ anxiety) Cardiac: reports: No Symptoms Reported GI: reports: Nausea, Vomiting, Indigestion (Heart burn - intermittent) : reports: No Symptoms Reported Musculoskeletal: reports: Back Pain (Intemittent. Trgiggers by lifting heavy items.) Integumentary: reports: No Symptoms Reported Neuro: reports: Headache (Mild achy/throbbing headache (L) temporal area), Tremors Endocrine: reports: Increased Thirst Hematology: reports: No Symptoms Reported Psychiatric: reports: Orientated x3, Anxious, Depressed Other Systems: Reviewed and Negative Patient History - Patient Medical History Hx Asthma: No Hx Chronic Obstructive Pulmonary Disease (COPD): No Hx Cardiac Disorders: No Hx Hypertension: No Hx Seizures: No Hx Diabetes: No Hx Gastrointestinal Disorders: No Hx Liver Disease: No Hx Genitourinary Disorders: No Hx Sexually Transmitted Disorders: No Hx Renal Disease (ESRD): No Hx Thyroid Disease: No Hx Human Immunodeficiency Virus (HIV): No (Never tested) Hx Depression: No Hx Suicide Attempt: No Hx Schizophrenia: No - Patient Surgical History Past Surgical History: No - PPD History Previous Implant?: Yes Documented Results: Negative w/proof Implanted On Prior [facility] Admission?: Yes Date: 12/26/17 PPD to be Administered?: Yes - Smoking Cessation Smoking history: Current every day smoker Have you smoked in the past 12 months: Yes Aproximately how many cigarettes per day: 10 Hx Chewing Tobacco Use: No Initiated information on smoking cessation: Yes 'Breaking Loose' booklet given: 02/07/19 - Substance & Tx. History Hx Alcohol Use: Yes Hx Substance Use: Yes Substance Use Type: Alcohol, Cocaine, Heroin, Marijuana Hx Substance Use Treatment: Yes (detox, rehab) - Substances abused Alcohol Substance route: Oral Frequency: Daily Amount used: 7 16oz beers Age of first use: 12 Date of last use: 02/07/19 Heroin Substance route: Inhalation Frequency: 1-3 times last 30 days Amount used: 1 bag Age of first use: 27 Date of last use: 02/07/19 Oxycontin Substance route: Oral Frequency: 1-3 times last 30 days Amount used: 30mg-40mg Age of first use: 23 Date of last use: 02/01/19 Cocaine Substance route: Inhalation Frequency: 3-6 times per week Amount used: $150 Age of first use: 21 Date of last use: 02/02/19 Admission Physical Exam [facility] - Vital Signs Vital Signs: Vital Signs - 24 hr 02/07/19 19:05 Temperature 97.0 F L Pulse Rate 113 H Respiratory 16 Rate Blood Pressure 180/86 H - Physical General Appearance: Yes: Mild Distress, Alcohol on Breath (AIMEE: 0.195), Thin, Sweating (Increased facial moisture) HEENTM: Yes: EOMI, Hearing grossly Normal, Normocephalic, Normal Voice, LITZY ( Pupils = 3 mm), Pharynx Normal, Nasal Congestion Respiratory: Yes: Lungs Clear, Normal Breath Sounds, Labored Respiration Neck: Yes: No masses,lesions,Nodules, Supple Breast: Yes: Breast Exam Deferred Cardiology: Yes: Regular Rhythm, Regular Rate (96), S1, S2 Abdominal: Yes: Non Tender, Flat, Soft, Increased Bowel Sounds Genitourinary: Yes: Within Normal Limits Back: Yes: Normal Inspection Musculoskeletal: Yes: full range of Motion, Gait Steady Extremities: Yes: Normal Capillary Refill, Tremors (Mod tremors w/ arms extended ) 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 NML intact, Fully Oriented, Alert, Motor Strength 5/5, Normal Response Integumentary: Yes: Normal Color, Warm, Diaphoresis (Increased facial moisture) Lymphatic: Yes: Within Normal Limits - Diagnostic (1) Opioid dependence with withdrawal Current Visit: Yes Status: Acute (2) Alcohol dependence with uncomplicated withdrawal Current Visit: Yes Status: Acute (3) Cannabis dependence, uncomplicated Current Visit: Yes Status: Chronic (4) Nicotine dependence, unspecified, uncomplicated Current Visit: Yes Status: Chronic Qualifiers: Nicotine product type: cigarettes Qualified Code(s): F17.210 - Nicotine dependence, cigarettes, uncomplicated Cleared for Admission [facility] - Detox or Rehab [facility] Level of Care: Medically Managed Detox Regimen/Protocol: Methadone/Librium Claeared for Rehab Admission: No Breathalyzer - Breathalyzer Breathalyzer: 0.195 Urine Drug Screen - Test Device Lot number: [id number] Expiration date: 10/17/20 - Control Is test valid?: Yes - Results Drug screen NEGATIVE: Yes Urine drug screen results: THC-Marijuana, MOP-Opiates Inpatient Rehab Admission - Rehab Decision to Admit Inpatient rehab admission?: No"
[2019-02-07] MEDS ORDERED: chlordiazePOXIDE HCL 25 MG CAPSULE PO ONE (22:09)
[2019-02-07] MEDS ORDERED: MAGNESIUM HYDROX 2400MG/30ML ORAL SUSPENSION 30 ML CUP PO PRN (22:09)
[2019-02-07] MEDS ORDERED: IBUPROFEN 400 MG TABLET (FP) PO PRN (22:09)
[2019-02-07] MEDS ORDERED: NICOTINE POLACRILEX 2 MG GUM BUC PRN (22:09)
[2019-02-07] MEDS ORDERED: chlordiazePOXIDE HCL 10 MG CAPSULE PO PRN (22:09)
[2019-02-07] MEDS ORDERED: MENTHOL/PHENOL 1 EACH UD MM PRN (22:09)
[2019-02-07] MEDS ORDERED: MAGNESIUM CITRATE 300 ML BOTTLE PO PRN (22:09)
[2019-02-07] MEDS ORDERED: ACETAMINOPHEN 325 MG TABLET (FP) PO PRN ×2 (22:09)
[2019-02-07] MEDS ORDERED: METHADONE HCL 10 MG TABLET (FOR DETOX USE ONLY) PO ONE (22:09)
[2019-02-07] MEDS ORDERED: cloNIDine HCL 0.1 MG TABLET PO PRN (22:09)
[2019-02-07] MEDS ORDERED: METHOCARBAMOL 500 MG TABLET PO PRN (22:09)
[2019-02-07] MEDS ORDERED: MAG HYDROX/AL HYDROX/SIMETH 30 ML UNIT-DOSE CUP PO PRN (22:09)
[2019-02-07] MEDS ORDERED: BISMUTH SUBSALICYLATE 524 MG/30 ML UD PO PRN (22:09)
[2019-02-07] MEDS: MELATONIN 5 MG TABLETS PO PRN (23:05)
[2019-02-08] MEDS: chlordiazePOXIDE HCL 25 MG CAPSULE PO SCH ×3 (05:34→21:48)
[2019-02-08] MEDS: NICOTINE 14 MG/24 HOURS TOPICAL PATCH TD SCH (09:46)
[2019-02-08] MEDS: PRENATAL VITAMINS W/ FOLIC ACID TABLET (FP) PO SCH (09:46)
[2019-02-08] MEDS ORDERED: METHADONE HCL 5 MG TABLET (FOR DETOX USE ONLY) PO ONE (10:00)
[2019-02-08 12:03] LABS: HEMATOCRIT 42.3 % (35.4-49); MCH 32.1 pg (25.7-33.7); MCHC 33.2 g/dl (32.0-35.9); MEAN CELL VOLUME 96.7 fl (80-96); MEAN PLT VOLUME 7.6 fl (7.5-11.1); PLATELET COUNT 270 K/MM3 (134-434); RBC 4.38 M/mm3 (4.00-5.60)
[2019-02-08 12:23] LABS: BILIRUBIN,TOTAL 0.6 mg/dL (0.2-1); BLOOD UREA NITROGEN 12.2 mg/dL (7-18); CALCIUM 8.8 mg/dL (8.5-10.1); CREATININE 0.9 mg/dL (0.55-1.3); POTASSIUM 4.1 mmol/L (3.5-5.1)
--- NOTE | 2019-02-08 13:35 | PN ---
[facility] CIWA - CIWA Score Nausea/Vomitin Muscle Tremors: 3 Anxiety: 4-Mod. Anxious/Guarded Agitation: 2 Paroxysmal Sweats: 1-Minimal Palms Moist Orientation: 0-Oriented Tacttile Disturbances: 0-None Auditory Disturbances: 0-None Visual Disturbances: 0-None Headache: 0-None Present CIWA-Ar Total Score: 12 [facility] COWS - Scale Resting Pulse: 0= [place] 80 or Below Sweatin= Chills/Flushing Restless Observation: 0= Sits Still Pupil Size: 0= Normal to Room Light Bone or Joint Aches: 1= Mild Discomfort Runny Nose/ Eye Tearin= None GI Upset > 30mins: 3= Vomiting/Diarrhea Tremor Observation of Outstretched Hands: 2= Slight Tremor Visible Yawning Observation: 1= 1-2x During Session Anxiety or Irritability: 1=Feels Anxious/Irritable Goose Flesh Skin: 3=Piloerection COWS Score: 12 S Progress Note (SOAP) Subjective: vomiting x 1 tigan 200 mg IM x 1 pepcid bid increase oral fluid bentyl 20 mg po x 2 Objective: 02/08/19 13:45 Vital Signs Temperature 96.4 F L 02/08/19 09:15 Pulse Rate 80 02/08/19 09:15 Respiratory Rate 18 02/08/19 09:15 Blood Pressure 134/91 02/08/19 09:15 O2 Sat by Pulse Oximetry (%) Laboratory Last Values WBC 7.0 K/mm3 (4.0-10.0) 02/08/19 08:40 RBC 4.38 M/mm3 (4.00-5.60) 02/08/19 08:40 Hgb 14.0 GM/dL (11.7-16.9) 02/08/19 08:40 Hct 42.3 % (35.4-49) 02/08/19 08:40 MCV 96.7 fl (80-96) H 02/08/19 08:40 MCH 32.1 pg (25.7-33.7) 02/08/19 08:40 MCHC 33.2 g/dl (32.0-35.9) 02/08/19 08:40 RDW 13.0 % (11.9-15.9) 02/08/19 08:40 Plt Count 270 K/MM3 (134-434) 02/08/19 08:40 MPV 7.6 fl (7.5-11.1) 02/08/19 08:40 Sodium 137 mmol/L (136-145) 02/08/19 08:40 Potassium 4.1 mmol/L (3.5-5.1) 02/08/19 08:40 Chloride 95 mmol/L (98-107) L 02/08/19 08:40 Carbon Dioxide 34 mmol/L (21-32) H 02/08/19 08:40 Anion Gap 8 MMOL/L (8-16) 02/08/19 08:40 BUN 12.2 mg/dL (7-18) 02/08/19 08:40 Creatinine 0.9 mg/dL (0.55-1.3) 02/08/19 08:40 Est GFR (CKD-EPI)AfAm 133.30 02/08/19 08:40 Est GFR (CKD-EPI)NonAf 115.01 02/08/19 08:40 Random Glucose 84 mg/dL (74-106) 02/08/19 08:40 Calcium 8.8 mg/dL (8.5-10.1) 02/08/19 08:40 Total Bilirubin 0.6 mg/dL (0.2-1) 02/08/19 08:40 AST 29 U/L (15-37) 02/08/19 08:40 ALT 43 U/L (13-61) 02/08/19 08:40 Alkaline Phosphatase 58 U/L (45-117) 02/08/19 08:40 Total Protein 7.0 g/dl (6.4-8.2) 02/08/19 08:40 Albumin 4.0 g/dl (3.4-5.0) 02/08/19 08:40 RPR Titer Nonreactive (NONREACTIVE) 02/08/19 08:40 lab noted Assessment: 02/08/19 13:45 alcohol and opiate withdrawal sx Plan: continue libruim and methadone detox regimen 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
[2019-02-08] MEDS ORDERED: DICYCLOMINE HCL 10 MG CAPSULE PO ONE (14:00)
[2019-02-08] MEDS ORDERED: TRIMETHOBENZAMIDE HCL 200MG/2ML INJ IM ONE (14:00)
[2019-02-08] MEDS ORDERED: DICYCLOMINE HCL 20 MG TABLET PO ONE (14:00)
[2019-02-08] MEDS: FAMOTIDINE 10 MG TABLET PO SCH ×2 (17:38→21:49)
[2019-02-08] MEDS: THIAMINE HCL 100 MG TABLET (FP) PO SCH (21:48)
[2019-02-09] MEDS ORDERED: chlordiazePOXIDE HCL 10 MG CAPSULE PO PRN
[2019-02-09] MEDS: chlordiazePOXIDE 5 MG CAPSULE PO SCH ×3 (06:02→22:24)
[2019-02-09] MEDS ORDERED: METHADONE HCL 10 MG TABLET (FOR DETOX USE ONLY) PO ONE (10:00)
[2019-02-09] MEDS: PRENATAL VITAMINS W/ FOLIC ACID TABLET (FP) PO SCH (10:29)
[2019-02-09] MEDS: NICOTINE 14 MG/24 HOURS TOPICAL PATCH TD SCH (10:29)
[2019-02-09] MEDS: FAMOTIDINE 10 MG TABLET PO SCH ×2 (10:30→22:24)
--- NOTE | 2019-02-09 13:48 | PN ---
[facility] CIWA - CIWA Score Nausea/Vomitin-Mild Nausea/No Vomiting Muscle Tremors: 2 Anxiety: 2 Agitation: 2 Paroxysmal Sweats: No Perspiration Orientation: 0-Oriented Tacttile Disturbances: 1-Very Mild Itch/Numbness Auditory Disturbances: 0-None Visual Disturbances: 1-Very Mild Sensitivity Headache: 2-Mild CIWA-Ar Total Score: 11 S COWS - Scale Resting Pulse: 0= [place] 80 or Below Sweatin= No chills or Flushing Restless Observation: 1= Difficult to Sit Still Pupil Size: 1= Pupils >than Normal Bone or Joint Aches: 1= Mild Discomfort Runny Nose/ Eye Tearin= Runny Nose/Eyes GI Upset > 30mins: 1= Stomach Cramp Tremor Observation of Outstretched Hands: 2= Slight Tremor Visible Yawning Observation: 1= 1-2x During Session Anxiety or Irritability: 2=Irritable/Anxious Goose Flesh Skin: 0=Smooth Skin COWS Score: 11 [facility] Progress Note (SOAP) Subjective: alert,irritable,anxious,interrupted sleep,tremor,pain in the body and back Objective: 02/09/19 13:47 Vital Signs Temperature 96.5 F L 02/09/19 13:13 Pulse Rate 59 L 02/09/19 13:13 Respiratory Rate 18 02/09/19 13:13 Blood Pressure 113/71 02/09/19 13:13 O2 Sat by Pulse Oximetry (%) Laboratory Last Values WBC 7.0 K/mm3 (4.0-10.0) 02/08/19 08:40 RBC 4.38 M/mm3 (4.00-5.60) 02/08/19 08:40 Hgb 14.0 GM/dL (11.7-16.9) 02/08/19 08:40 Hct 42.3 % (35.4-49) 02/08/19 08:40 MCV 96.7 fl (80-96) H 02/08/19 08:40 MCH 32.1 pg (25.7-33.7) 02/08/19 08:40 MCHC 33.2 g/dl (32.0-35.9) 02/08/19 08:40 RDW 13.0 % (11.9-15.9) 02/08/19 08:40 Plt Count 270 K/MM3 (134-434) 02/08/19 08:40 MPV 7.6 fl (7.5-11.1) 02/08/19 08:40 Sodium 137 mmol/L (136-145) 02/08/19 08:40 Potassium 4.1 mmol/L (3.5-5.1) 02/08/19 08:40 Chloride 95 mmol/L (98-107) L 02/08/19 08:40 Carbon Dioxide 34 mmol/L (21-32) H 02/08/19 08:40 Anion Gap 8 MMOL/L (8-16) 02/08/19 08:40 BUN 12.2 mg/dL (7-18) 02/08/19 08:40 Creatinine 0.9 mg/dL (0.55-1.3) 02/08/19 08:40 Est GFR (CKD-EPI)AfAm 133.30 02/08/19 08:40 Est GFR (CKD-EPI)NonAf 115.01 02/08/19 08:40 Random Glucose 84 mg/dL (74-106) 02/08/19 08:40 Calcium 8.8 mg/dL (8.5-10.1) 02/08/19 08:40 Total Bilirubin 0.6 mg/dL (0.2-1) 02/08/19 08:40 AST 29 U/L (15-37) 02/08/19 08:40 ALT 43 U/L (13-61) 02/08/19 08:40 Alkaline Phosphatase 58 U/L (45-117) 02/08/19 08:40 Total Protein 7.0 g/dl (6.4-8.2) 02/08/19 08:40 Albumin 4.0 g/dl (3.4-5.0) 02/08/19 08:40 RPR Titer Nonreactive (NONREACTIVE) 02/08/19 08:40 Assessment: 02/09/19 13:47 withdrawal symptom Plan: continue detox methadone and librium regimen
[2019-02-09] MEDS: THIAMINE HCL 100 MG TABLET (FP) PO SCH (22:24)
[2019-02-09] MEDS: MELATONIN 5 MG TABLETS PO PRN (22:25)
[2019-02-10] MEDS: chlordiazePOXIDE HCL 10 MG CAPSULE PO SCH ×3 (05:45→21:47)
[2019-02-10] MEDS ORDERED: METHADONE HCL 5 MG TABLET (FOR DETOX USE ONLY) PO ONE (06:00)
[2019-02-10] MEDS: NICOTINE 14 MG/24 HOURS TOPICAL PATCH TD SCH (09:49)
[2019-02-10] MEDS: FAMOTIDINE 10 MG TABLET PO SCH ×2 (09:49→21:44)
[2019-02-10] MEDS: PRENATAL VITAMINS W/ FOLIC ACID TABLET (FP) PO SCH (09:49)
[2019-02-10 12:39] LABS: PH,URINE 6.5 (5.0-8.0); URINE APPEARANCE CLEAR; URINE BILIRUBIN NEGATIVE (NEGATIVE); URINE COLOR YELLOW; URINE GLUCOSE (UA) NEGATIVE (NEGATIVE); URINE KETONE NEGATIVE (NEGATIVE); URINE LEUK ESTERASE NEGATIVE (NEGATIVE); URINE NITRITE NEGATIVE (NEGATIVE); URINE PROTEIN NEGATIVE (NEGATIVE); URINE UROBILINOGEN 0.2 mg/dL (0.2-1.0)
--- NOTE | 2019-02-10 13:21 | PN ---
[facility] CIWA - CIWA Score Nausea/Vomitin-No Nausea/No Vomiting Muscle Tremors: 2 Anxiety: 2 Agitation: 2 Paroxysmal Sweats: 1-Minimal Palms Moist Orientation: 0-Oriented Tacttile Disturbances: 0-None Auditory Disturbances: 0-None Visual Disturbances: 0-None Headache: 0-None Present CIWA-Ar Total Score: 7 S Progress Note (SOAP) Subjective: doing well with librium and methadone detox regimen ate breakfast but feeling tired today prefers to stay in bed longer Objective: 02/10/19 13:19 Vital Signs Temperature 95.8 F L 02/10/19 09:14 Pulse Rate 58 L 02/10/19 09:14 Respiratory Rate 16 02/10/19 09:14 Blood Pressure 115/71 02/10/19 09:14 O2 Sat by Pulse Oximetry (%) Laboratory Last Values WBC 7.0 K/mm3 (4.0-10.0) 02/08/19 08:40 RBC 4.38 M/mm3 (4.00-5.60) 02/08/19 08:40 Hgb 14.0 GM/dL (11.7-16.9) 02/08/19 08:40 Hct 42.3 % (35.4-49) 02/08/19 08:40 MCV 96.7 fl (80-96) H 02/08/19 08:40 MCH 32.1 pg (25.7-33.7) 02/08/19 08:40 MCHC 33.2 g/dl (32.0-35.9) 02/08/19 08:40 RDW 13.0 % (11.9-15.9) 02/08/19 08:40 Plt Count 270 K/MM3 (134-434) 02/08/19 08:40 MPV 7.6 fl (7.5-11.1) 02/08/19 08:40 Sodium 137 mmol/L (136-145) 02/08/19 08:40 Potassium 4.1 mmol/L (3.5-5.1) 02/08/19 08:40 Chloride 95 mmol/L (98-107) L 02/08/19 08:40 Carbon Dioxide 34 mmol/L (21-32) H 02/08/19 08:40 Anion Gap 8 MMOL/L (8-16) 02/08/19 08:40 BUN 12.2 mg/dL (7-18) 02/08/19 08:40 Creatinine 0.9 mg/dL (0.55-1.3) 02/08/19 08:40 Est GFR (CKD-EPI)AfAm 133.30 02/08/19 08:40 Est GFR (CKD-EPI)NonAf 115.01 02/08/19 08:40 Random Glucose 84 mg/dL (74-106) 02/08/19 08:40 Calcium 8.8 mg/dL (8.5-10.1) 02/08/19 08:40 Total Bilirubin 0.6 mg/dL (0.2-1) 02/08/19 08:40 AST 29 U/L (15-37) 02/08/19 08:40 ALT 43 U/L (13-61) 02/08/19 08:40 Alkaline Phosphatase 58 U/L (45-117) 02/08/19 08:40 Total Protein 7.0 g/dl (6.4-8.2) 02/08/19 08:40 Albumin 4.0 g/dl (3.4-5.0) 02/08/19 08:40 Urine Color Yellow 02/10/19 09:10 Urine Appearance Clear 02/10/19 09:10 Urine pH 6.5 (5.0-8.0) D 02/10/19 09:10 Ur Specific [place] 1.011 (1.010-1.035) 02/10/19 09:10 Urine Protein Negative (NEGATIVE) 02/10/19 09:10 Urine Glucose (UA) Negative (NEGATIVE) 02/10/19 09:10 Urine Ketones Negative (NEGATIVE) 02/10/19 09:10 Urine Blood Negative (NEGATIVE) 02/10/19 09:10 Urine Nitrite Negative (NEGATIVE) 02/10/19 09:10 Urine Bilirubin Negative (NEGATIVE) 02/10/19 09:10 Urine Urobilinogen 0.2 mg/dL (0.2-1.0) 02/10/19 09:10 Ur Leukocyte Esterase Negative (NEGATIVE) 02/10/19 09:10 RPR Titer Nonreactive (NONREACTIVE) 02/08/19 08:40 lab noted Assessment: 02/10/19 13:20 alcohol and opiate withdrawal sx Plan: continue librium and methadone detox regimen
[2019-02-10] MEDS: MELATONIN 5 MG TABLETS PO PRN (21:47)
[2019-02-10] MEDS: THIAMINE HCL 100 MG TABLET (FP) PO SCH (21:47)
[2019-02-11] MEDS ORDERED: chlordiazePOXIDE HCL 10 MG CAPSULE PO ONE (05:00)
[2019-02-11] MEDS: METHADONE HCL 5 MG TABLET PO SCH ×2 (05:29→05:38)
[2019-02-11 06:37] VITALS: BP 104/62; PULSE 61; TEMP 97.2
[2019-02-11] MEDS: NICOTINE 14 MG/24 HOURS TOPICAL PATCH TD SCH (10:13)
[2019-02-11] MEDS: FAMOTIDINE 10 MG TABLET PO SCH (10:13)
[2019-02-11] MEDS: PRENATAL VITAMINS W/ FOLIC ACID TABLET (FP) PO SCH (10:13)
--- NOTE | 2019-02-11 19:39 | DS ---
[facility] Detox Discharge Summary Admission Date: 02/07/19 Discharge Date: 02/11/19 - History Present History: Cannabis Dependence, Opioid Dependence Additional Comments: PATIENT RETURNING HOME FOR TIME BEING TO ATTEND TO PERSONAL MATTERS, WILL CONSIDER ATTENDING [facility] ([place], [place]) IN NEAR-FUTURE. PATIENT ALSO ADVISED TO CONSIDER LOCAL 12-STEP / NA / AA OUTPATIENT SUPPORT GROUP PROGRAMS FOR AFTERCARE. PATIENT VERBALIZED UNDERSTANDING OF RECOMMENDATION. PATIENT WAS DISCHARGED FROM DETOX UNIT IN STABLE MEDICAL CONDITION. Pertinent Past History: Nicotine Dependence, History Of Seizures, History of Blackouts, Anxiety, History Of Panic Attacks. - Physical Exam Results Vital Signs: Vital Signs Temperature 97.2 F L 02/11/19 06:36 Pulse Rate 61 02/11/19 06:36 Respiratory Rate 18 02/11/19 06:36 Blood Pressure 104/62 02/11/19 06:36 O2 Sat by Pulse Oximetry (%) Pertinent Admission Physical Exam Findings: WITHDRAWAL SYMPTOMS. Laboratory Tests 02/08/19 02/08/19 02/08/19 08:40 08:40 08:40 WBC 7.0 RBC 4.38 Hgb 14.0 Hct 42.3 MCV 96.7 H MCH 32.1 MCHC 33.2 RDW 13.0 Plt Count 270 MPV 7.6 Sodium 137 Potassium 4.1 Chloride 95 L Carbon Dioxide 34 H Anion Gap 8 BUN 12.2 Creatinine 0.9 Est GFR (CKD-EPI)AfAm 133.30 Est GFR (CKD-EPI)NonAf 115.01 Random Glucose 84 Calcium 8.8 Total Bilirubin 0.6 AST 29 ALT 43 Alkaline Phosphatase 58 Total Protein 7.0 Albumin 4.0 Urine Color Urine Appearance Urine pH Ur Specific [place] Urine Protein Urine Glucose (UA) Urine Ketones Urine Blood Urine Nitrite Urine Bilirubin Urine Urobilinogen Ur Leukocyte Esterase RPR Titer Nonreactive 02/10/19 09:10 WBC RBC Hgb Hct MCV MCH MCHC RDW Plt Count MPV Sodium Potassium Chloride Carbon Dioxide Anion Gap BUN Creatinine Est GFR (CKD-EPI)AfAm Est GFR (CKD-EPI)NonAf Random Glucose Calcium Total Bilirubin AST ALT Alkaline Phosphatase Total Protein Albumin Urine Color Yellow Urine Appearance Clear Urine pH 6.5 D Ur Specific [place] 1.011 Urine Protein Negative Urine Glucose (UA) Negative Urine Ketones Negative Urine Blood Negative Urine Nitrite Negative Urine Bilirubin Negative Urine Urobilinogen 0.2 Ur Leukocyte Esterase Negative RPR Titer LABS NOTED. - Treatment Hospital Course: Detox Protocol Followed, Detoxed Safely, Responded well, Discharged Condition Good Patient has Accepted a Rehab Referral to: PATIENT WILL CONSIDER REHAB ADMISSION FOR A LATER DATE. - Medication Discharge Medications: Ambulatory Orders Naloxone HCl [Narcan] 4 mg NS ASDIR PRN #1 spray 02/08/19 - Diagnosis (1) Alcohol dependence with uncomplicated withdrawal Status: Acute (2) Opioid dependence with withdrawal Status: Acute (3) Cannabis dependence, uncomplicated Status: Chronic (4) Nicotine dependence, unspecified, uncomplicated Status: Chronic Qualifiers: Nicotine product type: cigarettes Qualified Code(s): F17.210 - Nicotine dependence, cigarettes, uncomplicated - AMA Did Patient Leave Against Medical Advice: No
== END 2019-02-11 09:04 | disposition home or self-care (01) | DRG 773 ==
LOC: YASAS 17:46 → Y3N 22:10
PROVIDERS: ADMIT Allergy & Immunology; ATTEND Allergy & Immunology
PROC: HZ2ZZZZ Detoxification Services for Substance Abuse Treatment (ICD-10-PCS; principal; 2019-02-07)
DX: F10.230 Alcohol dependence with withdrawal, uncomplicated (principal); F11.23 Opioid dependence with withdrawal; F12.20 Cannabis dependence, uncomplicated; F14.10 Cocaine abuse, uncomplicated; F17.210 Nicotine dependence, cigarettes, uncomplicated; F41.9 Anxiety disorder, unspecified; F41.0 Panic disorder [episodic paroxysmal anxiety]
CPT/HCPCS: 36415; 80053; 81003; 85027; 86593